=== PATIENT | female | born 1995 | race Caucasian/White ===

== ENCOUNTER 2016-08-27 17:08 | Emergency (ER) | payer OTHER ==
[2016-08-27 17:23] VITALS: BP 112/63; PULSE 81; RESP 16; TEMP 97.7; O2SAT 98
--- NOTE | 2016-08-27 17:48 | EDPHY ---
H & P Time Seen by Provider: 08/27/16 17:34 HPI/ROS: CHIEF COMPLAINT: left ankle injury HISTORY OF PRESENT ILLNESS: 21-year-old female arrives via private vehicle complaining of acute left lateral ankle pain after she rolled her foot this morning. Unable to bear weight. Borrowed acrutch from a friend. No prior history of injury. No paresthesia. PHYSICAL EXAM (Prior to examination, patient consented to physical exam, hands were washed and my usual and customary physical exam procedures followed) 1) GENERAL: Well-developed, well-nourished, alert and oriented. Appears to be in no acute distress. 2) HEAD: Normocephalic 3) HEENT: Pupils equal, round, reactive to light bilaterally. 4) LUNGS: Breathing comfortably. 5) MUSCULOSKELETAL: Soft tissue swelling tender to palpation left lateral malleolus. Intact skin. proximal tibia and fibula nontender .5th MT nontender negative Vigil test, compartments soft 6) SKIN: intact. 7) VASCULAR: DP,PT pulses and cap refill present and brisk DIFFERENTIAL DIAGNOSIS: in no particular order including but not limited to fracture, sprain, compartment syndrome Procedure: Crutches indications for crutch use discussed with patient. Patient fitted for crutches by ER staff. Observed ambulating with crutches. I think the patient has the capacity to safely use crutches. Usual and customary crutch walking precautions provided Procedure: Splint A Jon boot splint was applied by ER machine set up technician. After application of the splint I returned and re-examined the patient. The splint was adequately immobilizing the joint and distal to the splint the patient's circulation and sensation were intact. Patient shows no signs of compartment syndrome. Was given orthopedic precautions. Smoking Status: Never smoked Constitutional: Initial Vital Signs Temperature (C) 36.5 C 08/27/16 17:21 Heart Rate 81 08/27/16 17:21 Respiratory Rate 16 08/27/16 17:21 Blood Pressure 112/63 08/27/16 17:21 O2 Sat (%) 98 08/27/16 17:21 O2 Delivery Mode Room Air Allergies/Adverse Reactions: No Known Allergies Allergy (Unverified 10/27/13 03:43) Home Medications: Medication Instructions Recorded Control 10/27/13 Prozac 20 MG (RX) 10/27/13 Solodyn 10/27/13 Spironolactone 10/27/13 busPIRone 10/27/13 Ibuprofen [Motrin (*)] 800 mg PO Q6 #15 tab 08/27/16 MDM/Departure - Depart Disposition: Home, Routine, Self-Care Clinical Impression: Left ankle sprain Qualifiers: Encounter type: initial encounter Involved ligament of ankle: unspecified ligament Qualified Code(s): S93.402A - Sprain of unspecified ligament of left ankle, initial encounter Condition: Good Instructions: Ankle Sprain (ED) Additional Instructions: Return to the ER immediately if you experience discoloration, have worsening pain, numbness, tingling, or any other symptoms that concern you. If you received x-rays in the emergency department today, be advised, that ligamentous , tendon, muscular, and other non-bony injury cannot be fully ruled out. Try to keep your affected extremity elevated above the level of your chest, and keep cold packs on the affected area, for the next 48 hours. Prescriptions: Ibuprofen [Motrin (*)] 800 mg PO Q6 #15 tab Referrals: Steve oG MD [Medical Doctor] - 2-3 days, call for appt.
== END 2016-08-27 18:18 | disposition home or self-care (01) ==
DX: S93.402A Sprain of unspecified ligament of left ankle, initial encounter (principal); X58.XXXA Exposure to other specified factors, initial encounter
CPT/HCPCS: L4386